=== PATIENT | male | born 1955 | race Caucasian/White ===

== ENCOUNTER 2016-10-29 14:26 | Emergency (ER) | payer OTHER ==
[2016-10-29 14:32] VITALS: BP 137/83
--- NOTE | 2016-10-29 14:59 | UC ---
Elbow Pain - HPI Summary HPI Summary: complaint of left elbow pain that started 2 days ago gradually the pain has increased and more inflamed pain is worse with movement denies trauma denies fever took some advil with relief - History of Current Complaint Hx Obtained From: Patient <Cassia Ricketts - Last Filed: 10/29/16 15:40> <Jenny Smith - Last Filed: 10/29/16 18:37> - History of Current Complaint Chief Complaint: UCUpperExtremity Stated Complaint: SOFT TISSUE COMPLAINT Time Seen by Provider: 10/29/16 14:53 - Allergies/Home Medications Allergies/Adverse Reactions: Allergies Allergy/AdvReac Type Severity Reaction Status Date / Time No Known Allergies Allergy Verified 12/12/15 12:01 PMH/Surg Hx/FS Hx/Imm Hx Previously Healthy: Yes Endocrine History: Dyslipidemia Cardiovascular History: Hypertension - Surgical History Surgical History: Yes Surgery Procedure, Year, and Place: Rt KNEE -Xs 2 - MMT , LATERAL MMT - Family History Known Family History: Positive: Hypertension Negative: Cardiac Disease, Diabetes - Social History Lives: With Family Alcohol Use: Occasionally Substance Use Type: None Smoking Status (MU): Never Smoked Tobacco <Cassia Ricketts - Last Filed: 10/29/16 15:40> Review of Systems Constitutional: Negative Skin: Negative Eyes: Negative ENT: Negative Respiratory: Negative Cardiovascular: Negative Gastrointestinal: Negative Genitourinary: Negative Motor: Negative Neurovascular: Negative Musculoskeletal: Other: - left elbow pain Neurological: Negative Psychological: Negative All Other Systems Reviewed And Are Negative: Yes <Cassia Ricketts - Last Filed: 10/29/16 15:40> Physical Exam Triage Information Reviewed: Yes Appearance: No Pain Distress, Well-Nourished Vital Signs: Initial Vital Signs Temp 98.4 F 10/29/16 14:30 Pulse 95 10/29/16 14:30 Resp 18 10/29/16 14:30 BP 137/83 10/29/16 14:30 Pulse Ox 100 10/29/16 14:30 Vital Signs Reviewed: Yes Eyes: Positive: Conjunctiva Clear ENT: Positive: Pharynx normal, TMs normal Neck: Positive: No Lymphadenopathy Respiratory: Positive: Lungs clear, Normal breath sounds, No respiratory distress, No accessory muscle use Cardiovascular: Positive: RRR, No Murmur, Pulses Normal Abdomen Description: Positive: Nontender, Soft Bowel Sounds: Positive: Present Musculoskeletal: Positive: Other: - tenderness and edema throughout upper arm, elbow and lower arm, in olecranon, medial, lateral epicondyle elbow. Full ROM upon flexion and extension Neurological: Positive: Alert Psychological Exam: Normal Skin: Positive: Other - erythema warm to touch from mid foream to mid upper arm puncture wounds on elbow appears to be insect bite <Cassia Ricketts - Last Filed: 10/29/16 15:40> Vital Signs: Initial Vital Signs Temp 98.4 F 10/29/16 14:30 Pulse 95 10/29/16 14:30 Resp 18 10/29/16 14:30 BP 137/83 10/29/16 14:30 Pulse Ox 100 10/29/16 14:30 <Jenny Smith - Last Filed: 10/29/16 18:37> Elbow Pain Course/Dx - Differential Dx/Diagnosis Differential Diagnosis/HQI/PQRI: Bursitis, Cellulitis, Infection, Joint Effusion Provider Diagnoses: cellulitis <Cassia Ricketts - Last Filed: 10/29/16 15:40> Discharge <Cassia Ricketts - Last Filed: 10/29/16 15:40> <Jenny Smith - Last Filed: 10/29/16 18:37> - Discharge Plan Condition: Stable Disposition: HOME Prescriptions: Sulfamethox/Trimethoprim DS* [Bactrim DS 800/160 TAB*] 1 tab PO BID #14 tab Patient Education Materials: Cellulitis (ED) Referrals: Shane Low MD [Primary Care Provider] - Additional Instructions: Please start antibiotic as directed Increase fluids and rest Take acetaminophen or ibuprofen for fever or pain Please review your discharge instructions. If your symptoms do not improve please call your primary care provider or return to urgent care. CELLULITIS What is Cellulitis? Cellulitis is a bacterial infection of the skin and, sometimes, of the tissues beneath the skin. The skin normally has many types of bacteria on it, but intact skin is an effective barrier that keeps bacteria from entering and growing within the body. When there is a break in the skin, bacteria can enter the body and grow there, causing infection. The infection usually affects outer layers of the skin first, and then spreads deeper into body tissues. Cellulitis can affect any area of the body covered by skin, but it is most common on the face or lower part of the legs. Symptoms Might Include: Skin redness that increases in size as the infection spreads Tight, glossy, "stretched" appearance of the skin Pain or tenderness of the area The affected area may be warm or hot to the touch A thin red line (along a vein) from the cellulitis toward the heart Fever Chills, shaking Muscle aches pains Joint stiffness because of swelling around a joint Treatment Recommendations: The healthcare provider may have prescribed an antibiotic medicine. The medicine should be taken until it is completely gone, even if you are feeling better. If you stop taking the medicine early, the infection may not be completely gone, and the medication may not work the next time. If the infection is on your arm or leg, keep it elevated. You may use warm, wet compresses to relieve the pain and help healing. Soak a clean cloth in warm water, wring it out a little, and apply it to the affected site. Leave the soak in place for 15 minutes and repeat often throughout the day. Rest until the fever is gone and the pain and redness have lessened. You may take ibuprofen (Motrin, Advil), or acetaminophen (Tylenol) for pain. These will help ease some of the symptoms but will not cure the infection. Call Your Doctor or Return Here IF: Your fever does not go down with treatment, or it increases to more than 101 F. You are not starting to get better with the treatment within 24 to 36 hours. You have increasing pain, swelling, or chills. You feel drowsy and lethargic, or you have vomiting or diarrhea. You find the redness is spreading or there are red streaks coming from the infected area. The joint or bone under the infected skin becomes painful after the skin has started to heal. You have any new symptoms that worry you. Attestation Statement User Type: Provider - I was available for consult. This patient was seen by the LAURA. The patient was not presented to, seen by, or examined by me. -Ryan <Jenny Smith - Last Filed: 10/29/16 18:37>
--- NOTE | 2016-10-29 15:20 | RAD ---
Indication: Left elbow pain. 2 views of left elbow demonstrates no fracture. No other bone or joint abnormality is noted. No joint effusion is noted. IMPRESSION: Unremarkable left elbow.
[2016-10-29] MEDS ORDERED: Tetan/Diph/Pertus SYR(Tdap)* 0.5 ML SYR(BOOSTRIX) use SYR IM ONE (15:43)
== END 2016-10-29 15:45 | disposition home or self-care (01) ==
LOC: UCEAST 14:26
DX: L03.114 Cellulitis of left upper limb (principal)
CPT/HCPCS: 99212; G0463

== ENCOUNTER 2016-11-01 15:17 | Day surgery (SDC) | payer OTHER ==
[2016-11-02] MEDS ORDERED: KETAMINE HCL* 50 MG/ML 10 ML VIAL ONE (07:39)
[2016-11-02] MEDS ORDERED: Midazolam* 1 MG/ML 5 ML VIAL (5 MG) ONE (07:39)
[2016-11-02] MEDS ORDERED: fentaNYL* 50 MCG/ML 2 ML VIAL (100 MCG VIAL) ONE ×2 (07:39→08:34)
[2016-11-02] MEDS ORDERED: Bupivacaine 0.25% SDV* 30 ML ONE (07:51)
[2016-11-02] MEDS ORDERED: Vancomycin(*) 2,000 MG in NS 0.9% 500 ML BAG* 500 ML IVPB ONE (08:00)
[2016-11-02] MEDS ORDERED: Ondansetron INJ* 2 MG/ML VIAL ONE (08:34)
[2016-11-02] MEDS ORDERED: PROCHLORPERAZINE INJ 5 MG/ML 2 ML VIAL ONE (08:34)
[2016-11-02] MEDS ORDERED: Propofol* 10 MG/ML 20 ML BTL IV PUSH ONE (08:34)
[2016-11-02] MEDS ORDERED: Lidocaine 2% PF * 5 ML VIAL ONE ×2 (08:34→09:28)
[2016-11-02] MEDS ORDERED: Dexamethasone IV* 4 MG/ML 1 ML (4 MG) ONE (08:34)
[2016-11-02] MEDS ORDERED: Phenylephrine IV* 40 MCG/ML 10 ML SYRINGE ONE (08:35)
[2016-11-02] MEDS ORDERED: Morphine INJ* 2 MG/ML 1 ML SYRINGE IV PRN (09:40)
[2016-11-02] MEDS ORDERED: PROCHLORPERAZINE INJ 5 MG/ML 2 ML VIAL IV PRN (09:40)
[2016-11-02] MEDS ORDERED: Ketorolac INJ* 30 MG/ML 1 ML VIAL IV PRN (09:40)
[2016-11-02] MEDS ORDERED: oxyCODONE/Acetamin 5/325 MG* TAB PO PRN (09:40)
[2016-11-02] MEDS ORDERED: Scopolamine 1.5 mg* PATCH TRANSDERM PRN (09:40)
[2016-11-02] MEDS ORDERED: fentaNYL* 50 MCG/ML 2 ML VIAL (100 MCG VIAL) IV PRN (09:40)
[2016-11-02] MEDS ORDERED: hydrALAZINE IV* 20 MG/ML VIAL ONE (09:52)
[2016-11-02] MEDS ORDERED: hydrALAZINE IV* 20 MG/ML VIAL IV SLOW PU ONE (09:53)
[2016-11-02 10:46] VITALS: BP 138/82
--- NOTE | 2016-11-02 16:36 | OP ---
DATE OF OPERATION: 11/02/16 [facility] DATE OF : 53 SURGEON: Bruce Walters MD JEWISH [employer]OUGHT PROFESSOR: KOBI Johnson ANESTHESIOLOGIST: Latrell Casey MD ANESTHESIA: General. PRE-OP DIAGNOSIS: Septic left olecranon bursitis. POST-OP DIAGNOSIS: Septic left olecranon bursitis. OPERATIVE PROCEDURE: Left elbow olecranon bursectomy. INDICATIONS: Bart was out of town last week when the left elbow began to bother him. He was started on some Bactrim and he saw his primary care, Dr. Low, who started him on doxycycline and sent him over to my office. I aspirated the bursa. Later that night, it came back as MRSA positive. I called Pablo. The soonest he could have an intervention was Thursday. 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 We talked about risks and benefits including the risk of persistent infection after surgery, risk of wound problems , risk of need for further surgery. He elected to proceed. ESTIMATED BLOOD LOSS: 5 mL. COMPLICATIONS: None. FINDINGS: As expected. DESCRIPTION OF PROCEDURE: Bart was seen in the preoperative holding area. The correct site and side of the procedure were identified. We came back to the operating room, where he was placed in the lateral decubitus position with the left arm facing me over an arm roca. The arm was prepped and draped in the usual fashion and a formal time-out was performed. I began by making posterior incision directly over the midline of the posterior elbow. This was made the full length of the bursa. I then the bursal tissue from the underlying dermis. The dermis was preserved as I excised the bursa in its entirety sharply. The margins were completely free. Taking care to excise the bursa in its entirety, we had also not buttonhole through the skin. Care was taken immediately to not violate the deep fascia and to therefore not injure the ulnar nerve. The bursa was excised in its entirety, deeply off the proximal tissue of the distal triceps tendon proximally and of the olecranon and fascia distally. This was handed off as a specimen. I had obtained a set of cultures prior to this. I then curetted out all of the remaining margins. The wound was copiously irrigated with 3 L of saline. The skin was then loosely closed with 3-0 nylon suture. The wound was dressed with Xeroform, 4x4s, ABD, sterile Webril, and then a posterior slab splint with the arm in 70 degrees of flexion was applied with some decent compression to help minimize postoperative fluid collection. He did get 2 g of vancomycin started preop. Tourniquet was deflated after the splint was on. The tourniquet had been inflated to 250 mmHg prior to making skin incision. He was then woken up and taken to recovery room in stable condition. POSTOPERATIVE PLAN: I am going to see Pablo back next week and have a look at the wound. He is going to continue the Bactrim and the doxycycline for now. I sent a script over for more Bactrim as he is getting close to running out. I will check on him again early next week. [id number]/[facility] #: [id number] LEONID
[2016-11-05] MEDS ORDERED: Scopolomine PATCH Remove* 1 NOTE MISC PATCH OFF ONE (09:42)
== END 2016-11-02 10:45 | disposition home or self-care (01) ==
LOC: SDS 15:17
PROVIDERS: ATTEND Orthopaedic Surgery Hand Surgery
DX: M71.122 Other infective bursitis, left elbow (principal); B95.62 Methicillin resistant Staphylococcus aureus infection as the cause of diseases classified elsewhere
CPT/HCPCS: 87070; 87073; 87205; 87640; 87641; 88304; J0360; J0780; J1100; J2250; J2405; J2704; J3010; J3370

== ENCOUNTER 2019-03-31 05:37 | Inpatient (IN) | payer OTHER ==
--- NOTE | 2019-03-22 12:56 | HP ---
HISTORY AND PHYSICAL: DATE OF ADMISSION/SURGERY: 03/31/19 DATE OF OFFICE VISIT: 03/09/19 SURGEON: Zita Aguilar MD * (DICTATED BY KOBI JONES) PROCEDURE: Bilateral total knee arthroplasty. CHIEF COMPLAINT: Bilateral knee pain. HISTORY OF PRESENT ILLNESS: Mr. Iniguez is a 63-year-old gentleman with end- stage osteoarthritis of the bilateral knees. He has failed conservative treatment and elected to proceed with bilateral total knee arthroplasties. PAST MEDICAL HISTORY: Hypertension, high cholesterol, BPH, GERD, and history of MRSA. PAST SURGICAL HISTORY: Right knee arthroscopy x2, left elbow bursectomy. CURRENT MEDICATIONS: 1. Cialis 5 mg as needed. 2. Centrum Silver. 3. Losartan potassium 100 mg daily. 4. Amlodipine 10 mg a day. 5. Crestor 5 mg a day. 6. Citalopram 10 mg daily. 7. Famotidine 20 mg a day. ALLERGIES: No known drug allergies. FAMILY HISTORY: Hypertension. SOCIAL HISTORY: He is a 63-year-old gentleman, lives with his . He does not smoke or use drugs. REVIEW OF SYSTEMS: A complete 14-point review of systems was reviewed with the patient. It was positive for GERD and history of MRSA infection 2 years ago of his left elbow. He denies history of DVT, hepatitis, HIV, or anesthesia problems. PHYSICAL EXAMINATION GENERAL: He is well developed, well nourished, in no acute distress. VITAL SIGNS: He stands 5 feet 10 inches tall, weighs 193 pounds. His blood pressure is 142/72, his heart rate is 72. HEENT: Normocephalic, atraumatic. NECK: Supple. No palpable lymph nodes. PULMONARY: The lungs are clear to auscultation bilaterally. CARDIO: Regular rate and rhythm. Strong S1, S2. ABDOMEN: Soft, nontender, nondistended. NEUROLOGICAL: He is alert and oriented x3. MUSCULOSKELETAL: Bilateral lower extremities: The skin is intact. There are no open wounds or abrasions. There are moderate bilateral joint effusions. Range of motion is 20 to 120 degrees of flexion bilaterally. He is tender along the medial joint line of both knees. He is able to dorsiflex and plantarflex, has 2+ dorsalis pedis pulses and intact sensation. ASSESSMENT AND PLAN: Mr. Iniguez is a 63-year-old gentleman with end-stage osteoarthritis of both knees. He has failed conservative treatment and elected to proceed with bilateral total knee arthroplasties. The surgery is scheduled for 03/31/[address] Aguilar discussed the risks and benefits of the surgery at today's visit and all of his questions were answered. He will follow up with Dr. Aguilar 2 weeks after the surgery. KOBI JONES [id number]/[facility] #: [id number] MTDD
[~2019-03-31 05:37] MED LIST: Buffered Lidocaine 1% SYRIN* 1 ML/SYRINGE INTRADERM ONE; Tranexamic Acid 1,000 MG in NS 0.9% 50 ML* (outpatient use) IV SCH
[2019-03-31] MEDS ORDERED: fentaNYL* 50 MCG/ML 2 ML VIAL (100 MCG VIAL) IV PRN (05:39)
[2019-03-31] MEDS ORDERED: PROCHLORPERAZINE INJ 5 MG/ML 2 ML VIAL IV PRN (05:39)
[2019-03-31] MEDS ORDERED: Naloxone* 0.4 MG/ML 1 ML VIAL IV PRN (05:39)
[2019-03-31] MEDS ORDERED: DiMENhydriNATE IV* 50 MG/ML VIAL IV PUSH PRN (05:39)
[2019-03-31] MEDS ORDERED: HYDROmorphone INJ1* 1 MG/ML SYRINGE IV PRN (05:39)
--- OUTSIDE RECORDS SUMMARY | 2019-03-31 05:40 | XMS REPORT | Continuity of Care Document ---
:1955 External Reference #:[id number] Author Name Zita Aguilar M.D. (transmitted by agent of provider Kyra Parkinson) Address [address] 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 Onset: 12/12/2015 Acquired spondylolisthesis Magan Pina M.D. Onset: 12/12/2015 Localized, primary osteoarthritis Colby Ayala MD Onset: 01/22/2016 Knee joint effusion Colby Ayala MD Onset: 01/22/2016 Olecranon bursitis Bruce Walters MD Onset: 10/31/2016 Strain of muscle(s) and tendon(s) of the Colby Ayala MD Onset: 2018 rotator cuff of right shoulder, subsequent encounter Strain of rotator cuff capsule Colby Ayala MD Onset: 07/08/2018 Social History Type Date Description Comments Sex Unknown ETOH Use Drinks Alcoholic Beverages Occasionally Tobacco Use Start: Unknown Patient has never smoked Recreational Drug Use Denies Drug Use Smoking Status Reviewed: 03/09/19 Patient has never smoked Exercise Type/Frequency Does not exercise Allergies, Adverse Reactions, Alerts Description No Known Drug Allergies Medications Active Medications SIG Qnty Indications Ordering Date Provider Meloxicam 1 by mouth every 14tabs M25.562 Zita Aguilar, 10/18/2018 15mg day M.D. Tablets Cialis 1 by mouth 1 hour Unknown 5mg Tablets before intercourse as needed Centrum Silver Ultra Unknown Mens Tablets Losartan Potassium 1 by mouth every Unknown day 100mg Tablets Amlodipine Besylate Take 1 Tablet By Unknown Mouth Every Day 10mg Tablets Crestor 1 by mouth every Unknown 5mg Tablets day Ranitidine HCL take one tablet by Unknown 150mg mouth twice a day Tablets Medications Administered in Office Medication SIG Qnty Indications Ordering Provider Date Depomedrol 40MG Zita Aguilra M.D. 10/18/2018 Injection Depomedrol 40MG Zita Aguilar M.D. 10/18/2018 Injection No Injection Bruce Walters MD 10/31/2016 Injection Immunizations Description No Information Available Vital Signs Date Vital Result Comment 03/09/2019 11:08am Height 70 inches 5'10" Weight 193.00 lb Heart Rate 68 /min BP Systolic 142 mmHg BP Diastolic 72 mmHg Respiratory Rate 18 /min Pain Level 6 BMI (Body Mass Index) 27.7 kg/m2 02/02/2019 11:30am Height 70 inches 5'10" Weight 191.00 lb Heart Rate 75 /min BP Systolic 140 mmHg BP Diastolic 82 mmHg Body Temperature 97.6 F Pain Level 2 BMI (Body Mass Index) 27.4 kg/m2 Results Description No Information Available Procedures Date Code Description Status 10/18/2018 63841 Inject/Drain Joint/Bursa Major W/O US Completed Medical Devices Description No Information Available Encounters Type Date Location Provider Dx Diagnosis [facility] Eff[facility], right knee M25.562 Pain in left knee M25.462 Effusion, left knee M17.0 Bilateral primary osteoarthritis of knee Office Visit 11/01/2018 11:00a [facility], M25.561 Pain in right at [facility]. knee M25.562 Pain in left knee M25.461 Effusion, right knee M25.462 Effusion, left knee M17.0 Bilateral primary osteoarthritis of knee S83.242A Oth tear of medial meniscus, current injury, left knee, init S83.282A Oth tear of lat mensc, current injury, left knee, init Office Visit 10/18/2018 9:30a [facility] Zitakatie Syedke, M25.561 Pain in right at [place] M.D. knee M25.562 Pain in left knee M25.461 Effusion, right knee M25.462 Effusion, left knee M17.0 Bilateral primary osteoarthritis of knee Assessments Date Code Description Provider 03/09/2019 M25.561 Pain in right knee Zita Jeff, M.D. 03/09/2019 M25.461 Effusion, right knee Zita Jeff, M.D. 03/09/2019 M25.562 Pain in left knee Zita Jeff, M.D. 03/09/2019 M25.462 Effusion, left knee Zita Jeff, M.D. 03/09/2019 M17.0 Bilateral primary osteoarthritis of knee Zita Jeff, M.D. 02/02/2019 M25.561 Pain in right knee Zita Jeff, M.D. 02/02/2019 M25.461 Effusion, right knee Zita Jeff, M.D. 02/02/2019 M25.562 Pain in left knee Zita Jeff, M.D. 02/02/2019 M25.462 Effusion, left knee Zita Jeff, M.D. 02/02/2019 M17.0 Bilateral primary osteoarthritis of knee Zita Jeff, M.D. 11/10/2018 M25.561 Pain in right knee Zita Jeff, M.D. 11/10/2018 M25.461 Effusion, right knee Zita Jeff, M.D. 11/10/2018 M17.0 Bilateral primary osteoarthritis of knee Zita Jeff, M.D. 11/09/2018 M25.561 Pain in right knee Zita Jeff, M.D. 11/09/2018 M25.461 Effusion, right knee Zita Jeff, M.D. 11/09/2018 M17.0 Bilateral primary osteoarthritis of knee Zita Jeff, M.D. 11/01/2018 M25.561 Pain in right knee Zita Jeff, M.D. 11/01/2018 M25.562 Pain in left knee Zita Jeff, M.D. 11/01/2018 M25.461 Effusion, right knee Zita Aguilar M.D. 11/01/2018 M25.462 Effusion, left knee Zita Aguilar M.D. 11/01/2018 M17.0 Bilateral primary osteoarthritis of knee Zita Aguilar M.D. 11/01/2018 S83.242A Oth tear of medial meniscus, current injury, Zita Aguilar M.D. left knee, init 11/01/2018 S83.282A Oth tear of lat mensc, current injury, left Zita Aguilar M.D. knee, init 10/18/2018 M25.561 Pain in right knee Zita Aguilar M.D. 10/18/2018 M25.562 Pain in left knee Zita Aguilar M.D. 10/18/2018 M25.461 Effusion, right knee Zita Aguilar M.D. 10/18/2018 M25.462 Effusion, left knee Zita Aguilar M.D. 10/18/2018 M17.0 Bilateral primary osteoarthritis of knee Zita Aguilar M.D. Plan of Treatment Future Appointment(s):04/15/2019 1:00 pm - Zita Aguilar M.D. at [facility] at Tovxgm9703/31/2019 8:30 am - Tony Medina PA-C at [facility] at Aczmhn0003/31/2019 8:30 am - KOBI Don at [facility] at Xkzecs5903/31/2019 8:30 am - Zita Aguilar M.D. at [facility] at Zgjoeb2403/09/2019 - Zita Aguilar M.D.M25.561 Pain in right kneeFollow up:Follow up: 2 weeks after qijhtwmQ59.461 Effusion, right kneeM25.562 Pain in left kneeM25.462 Effusion, left kneeM17.0 Bilateral primary osteoarthritis of knee Functional Status Description No Information Available Mental Status Description No Information Available Referrals Description No Information Available
--- OUTSIDE RECORDS SUMMARY | 2019-03-31 05:40 | XMS REPORT | Continuity of Care Document ---
:1955 External Reference #:[id number] Author Name Zita Aguilar M.D. 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 10/18/2018 Injection Depomedrol 40MG Zita Aguilar M.D. 10/18/2018 Injection No Injection Bruce Walters MD 10/31/2016 Injection Immunizations Description No Information Available Vital Signs Date Vital Result Comment 02/02/2019 11:30am Height 70 inches 5'10" Weight 191.00 lb Heart Rate 75 /min BP Systolic 140 mmHg BP Diastolic 82 mmHg Body Temperature 97.6 F Pain Level 2 BMI (Body Mass Index) 27.4 kg/m2 11/01/2018 11:06am Height 70 inches 5'10" Weight 190.00 lb Heart Rate 72 /min BP Systolic 152 mmHg BP Diastolic 80 mmHg BMI (Body Mass Index) 27.3 kg/m2 Results Description No Information Available Procedures Date Code Description Status 02/02/2019 Inject/Drain Joint/Bursa Major W/O US Completed 02/02/2019 Inject/Drain Joint/Bursa Major W/O US Completed 10/18/2018 Inject/Drain Joint/Bursa Major W/O US Completed Medical Devices Description No Information Available Encounters Type Date Location Provider Dx Diagnosis Office Visit 11/01/2018 [facility] Zita Aguilar, M25.561 Pain in right 11:00a at [place] M.D. knee M25.562 Pain in left knee M25.461 Effusion, right knee M25.462 Effusion, left knee M17.0 Bilateral primary osteoarthritis of knee S83.242A Oth tear of medial meniscus, current injury, left knee, init S83.282A Oth tear of lat mensc, current injury, left knee, init Office Visit 10/18/2018 9:30a [facility] Zita Aguilar, M25.561 Pain in right at [place] M.D. knee M25.562 Pain in left knee M25.461 Effusion, right knee M25.462 Effusion, left knee M17.0 Bilateral primary osteoarthritis of knee Assessments Date Code Description Provider 02/02/2019 M25.561 Pain in right knee Zita [...] M.D. 11/01/2018 M25.461 Effusion, right knee Zita Jeff, M.D. 11/01/2018 M25.462 Effusion, left knee Zita Jeff, M.D. 11/01/2018 M17.0 Bilateral primary osteoarthritis of knee Zita Jeff, M.D. 11/01/2018 S83.242A Oth tear of medial meniscus, current injury, Zita Aguilar M.DElijah left knee, init 11/01/2018 S83.282A Oth tear of lat mensc, current injury, left Zita Aguilar , MElijahD. knee, init 10/18/2018 M25.561 Pain in right knee Zita Jeff, M.D. 10/18/2018 M25.562 Pain in left knee Zita Aguilar M.D. 10/18/2018 M25.461 Effusion, right knee Zita Aguilar M.D. 10/18/2018 M25.462 Effusion, left knee Zita Aguilar M.D. 10/18/2018 M17.0 Bilateral primary osteoarthritis of knee Zita Aguilar M.D. Plan of Treatment Future Appointment(s):03/23/2019 11:30 am - Zita Aguilar M.D. at [facility] at Ejyubf0903/31/2019 7:30 am - Zita Aguilar M.D. at [facility] at Drxnba3102/02/2019 - Zita Aguilar M.D.M25.561 Pain in right kneeNew Xrays:CT Extremity Lower Right Wo, Ordered: 02/02/19Follow up:Follow up : for H&PM25.461 Effusion, right kneeM25.562 Pain in left kneeM25.462 Effusion, left kneeM17.0 Bilateral primary osteoarthritis of knee Functional Status Description No Information Available Mental Status Description No Information Available Referrals Description No Information Available
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
--- OUTSIDE RECORDS SUMMARY | 2019-03-31 05:40 | XMS REPORT | Continuity of Care Document ---
:1955 External Reference #:[id number] Author Name Toya Brown NP Address [address] [place] [address] Care Team Providers Name Role Phone Shane Low MD - Family Medicine Care Team Information Field Crop I Farmworker [phone] Virgilio Vasquez MD - Cardiovascular Care Team Information Field Crop I Farmworker Disease Problems Active Problems Provider Date Benign [...] Patient has never smoked Smoking Status Reviewed: 02/15/19 Patient has never smoked Allergies, Adverse Reactions, Alerts Description No Known Drug Allergies Medications Active Medications SIG Qnty Indications Ordering Date Provider Sergo sanchez 85gm T24.231A Toya Ruiz 02/15/2019 1% Cream amount to Brown, ACCOUNTS RECEIVABLE CLERK affected are twice a day Bactrim DS 1 tablet by 20tabs L03.115 Toya Sara 02/15/2019 800-160mg mouth twice a Brown, ACCOUNTS RECEIVABLE CLERK Tablets day Amlodipine Besylate 1 by mouth [...] by mouth once 4caps Shane F. 08/04/2012 14136Cavr monthly Shallish, M.D. Capsules Ibuprofen take 1 tablet by 120tabs Shane F. 08/17/2009 400mg Tablets mouth every 4 Shallish, M.D. hours if needed for pain with food Centrum Mens 50 + 1 po qd Unknown Tablets Cialis daily Unknown 5mg Tablets Immunizations CPT Code Status Date Vaccine Lot # [id number] Given 01/19/2018 Influenza Vac, [place], [place] [id number] Given 01/19/2018 Influenza Vac, Quadrivalent, Slit Virus, Im [id number] 66195 Given 01/06/2017 Influenza Vac, Quadrivalent, Slit Virus, Im [id number] 70212 Given 09/05/2015 Zostivax 17339 Given 08/17/2009 Tdap Tetanus, W Pertussis [id number] Vital Signs Date Vital Result Comment 02/15/2019 4:06pm BP Systolic 128 mmHg BP Diastolic 68 mmHg Heart Rate 78 /min Body Temperature 98.6 F Respiratory Rate 16 /min Height 68.5 inches 5'8.50" Weight 194.00 lb BMI (Body Mass Index) 29.1 kg/m2 11/16/2018 4:36pm BP Systolic 116 mmHg BP Diastolic 68 mmHg Heart Rate 84 /min Body Temperature 98.6 F Respiratory Rate 16 /min Height 68.5 inches 5'8.50" Weight 190.25 lb BMI (Body Mass Index) 28.5 kg/m2 Results Test Date Facility Test Result H/L Range Note Laboratory test 10/12/2018 [facility]) PSA 6.6 ng/mL High 0.0- 4.0 1 finding 1 consistent w/ previous results Procedures Date Code Description Status 02/27/2015 [id number] Colonoscopy Completed Medical Devices Description No Information Available Encounters Type Date Location Provider Dx Diagnosis Office Visit 11/16/2018 Main Office Shane Low, Brice Essential ( primary) 3:40p M.D. hypertension N40.0 Benign prostatic hyperplasia without lower urinry tract symp M15.0 Primary generalized (osteo)arthritis L03.011 Cellulitis of right finger Assessments Date Code Description Provider 02/15/2019 L03.115 Cellulitis of right lower limb [...] Shane Low M.D. Plan of Treatment Future Appointment(s):02/22/2019 11:00 am - Toya Brown NP at Main Ppfqef6903/03/2019 8:20 am - Shane Low M.D. at Main Gtrngu0302/15/2019 - Toya Brown, NPL03.115 Cellulitis of right lower limbNew Medication: Bactrim DS 800-160 mg - 1 tablet by mouth twice a dayComments:water gently over site no scrubbing patient instructed to call back if condition fails to improve orworsens. silvadine BID Bactrim as he has a hx of MRSAFollow up:1 weekT24.231A Burn of second degree of right lower leg, initial encounterNew Medication:Silvadene 1 % - apply small amount to affected are twice a dayAllComments:Medication Management Patient Understands medications he 's taking? Yes No Are there Barriers to Adherence? Yes No Has the patient been asked about herbal supplements and therapies, andOTC meds? Yes No Care Plan1. Patient has been queried about patient's goals/ preferences and functional/lifestyle goals at relevant visits. If relevant, describe: na2. Treatment goals as explained to the patient: above3. Are there barriers to meeting treatment goals? Yes No If Yes, please describe: disease process, comorbid conditions 4. Self-Management goals as described to the [...] pain jw Scheduled 10/18/2018 [facility] [address] [address] [phone]
[2019-03-31] MEDS ORDERED: Ondansetron ODT TAB* 4 MG PO ONE (06:00)
[2019-03-31] MEDS ORDERED: Gabapentin CAP(*) 300 MG PO ONE (06:00)
[2019-03-31] MEDS ORDERED: Acetaminophen TAB* 325 MG PO ONE (06:00)
[2019-03-31] MEDS ORDERED: celeCOXIB CAP* 200 MG PO ONE (06:00)
[2019-03-31] MEDS ORDERED: Famotidine IV* 10 MG/ML 2 ML (20 mg) IV ONE (06:00)
[2019-03-31] MEDS ORDERED: Lactated Ringers 1000 ML Bag* 1,000 ML IV SCH (06:00)
[2019-03-31] MEDS ORDERED: Dexamethasone TAB* 4 MG PO ONE (06:00)
[2019-03-31] MEDS ORDERED: ceFAZolin 2 GM in NS PREMIX(*) 2 GM/100 ML BAG IVPB ONE (06:18)
[2019-03-31] MEDS ORDERED: Acetaminophen TAB* 325 MG ONE (06:50)
[2019-03-31] MEDS ORDERED: Dexamethasone TAB* 4 MG ONE (06:50)
[2019-03-31] MEDS ORDERED: Gabapentin CAP(*) 300 MG ONE (06:50)
[2019-03-31] MEDS ORDERED: Famotidine IV* 10 MG/ML 2 ML (20 mg) ONE (06:51)
[2019-03-31] MEDS ORDERED: celeCOXIB CAP* 200 MG ONE (06:51)
[2019-03-31] MEDS ORDERED: Ondansetron ODT TAB* 4 MG ONE (07:03)
[2019-03-31] MEDS ORDERED: fentaNYL* 50 MCG/ML 5 ML VIAL (250 MCG VIAL) ONE (07:29)
[2019-03-31] MEDS ORDERED: KETAMINE HCL* 50 MG/ML 10 ML VIAL ONE (07:30)
[2019-03-31] MEDS ORDERED: Midazolam* 1 MG/ML 10 ML VIAL (10 MG) ONE (07:30)
[2019-03-31 07:37] LABS: INR 1.01 (0.82-1.09)
[2019-03-31] MEDS ORDERED: Bupivacaine 0.5%* 50 ML MDV VIAL ONE (08:08)
[2019-03-31] MEDS ORDERED: ROPIVACAINE 5 MG/ML 30 ML BTL (0.5%) ONE (09:06)
[2019-03-31] MEDS ORDERED: Phenylephrine 10 MG/ML VIAL* 1 ML VIAL ONE (10:18)
[2019-03-31] MEDS ORDERED: Phenylephrine 40 MCG/ML SYRINGE ONE (10:18)
[2019-03-31] MEDS ORDERED: EPHEDrine (Pressors)* 50 MG/ML VIAL ONE (10:19)
[2019-03-31] MEDS ORDERED: Lidocaine 2% PF * 5 ML VIAL ONE (10:19)
[2019-03-31] MEDS ORDERED: HYDROmorphone INJ1* 1 MG/ML SYRINGE ONE ×2 (10:19→11:31)
[2019-03-31] MEDS ORDERED: Bupivacaine 0.5% SDV PF* 30ML VIAL ONE (10:19)
[2019-03-31] MEDS ORDERED: PROCHLORPERAZINE INJ 5 MG/ML 2 ML VIAL ONE (10:19)
[2019-03-31] MEDS ORDERED: Propofol* 10 MG/ML 20 ML BTL ONE (10:19)
[2019-03-31] MEDS ORDERED: Morphine INJ* 2 MG/ML 1 ML SYRINGE (TWO MG - NEW SYRINGE VERSION) IV PRN (12:21)
[2019-03-31] MEDS ORDERED: Ondansetron INJ* 2 MG/ML VIAL IV PRN (12:21)
[2019-03-31] MEDS ORDERED: Ondansetron ODT TAB* 4 MG PO PRN (12:21)
[2019-03-31] MEDS ORDERED: diPHENhydraMINE PO* 25 MG PO PRN (12:21)
[2019-03-31] MEDS ORDERED: Acetaminophen TAB* 325 MG PO PRN (12:21)
[2019-03-31] MEDS ORDERED: diPHENhydraMINE IV* 50 MG/ML 1 ml VIAL (BENADRYL) IV PRN (12:21)
[2019-03-31] MEDS ORDERED: Magnesium Hydroxide LIQ* 30 ML UDC PO PRN (12:21)
[2019-03-31] MEDS ORDERED: oxyCODONE TAB* 5 MG TAB ONE (13:37)
[2019-03-31] MEDS: oxyCODONE TAB* 5 MG TAB PO PRN ×2 (13:37→13:38)
[2019-03-31] MEDS: Lactated Ringers 1000 ML Bag* 1,000 ML IV SCH (14:15)
--- NOTE | 2019-03-31 15:23 | PN ---
Progress Note - Progress Note Date of Service: 03/31/19 Note: Pt seen at bedside POD 0. He feels well without complaints. Denies CP, SOB, dizziness, nausea. Dressings are CDI, able to df/pf bilaterally, DP2+ and sensation intact to light touch distally bilaterally.
[2019-03-31] MEDS: ceFAZolin 1 GM ADVAN(*) 1 GM in NS 0.9% 50 ML* 50 ML IVPB SCH (16:22)
[2019-03-31] MEDS: oxyCODONE/Acetamin 5/325 MG* TAB PO PRN ×2 (16:29→20:48)
--- NOTE | 2019-03-31 19:27 | OP ---
Operative Report - Blank - Operative Report Date of Operation: 03/31/19 Note: BJ ALEXANDRE 1955 Date of Surgery: 03/31/19 Zita Aguilar MD Wash Driller Helper: Hiral PEACE did help throughout the procedure with preparation of the knee, wound retraction, manipulation of the knee, and wound closure. Anesthesiologist: Layne Casey MD Anesthesia Type: General and Adductor Blocks Bilaterally Preoperative Diagnosis: Bilateral severe degenerative osteoarthritis of the knees Postoperative Diagnosis: As above Procedure Performed: Bilateral Total Knee Arthroplasty Tourniquet time: 44 minutes left knee, 48 minutes right knee Complications: None Specimen: Bone and cartilage from the bilateral knees joint sent to pathology. Hardware Used: Cemented Hicks and Nephew total knee hardware was used - Left - For the femur a size 6 left oxinium legion posterior stabilized femoral component, for the tibia a size 5 left sasha II tibial baseplate, for the insert a size 9mm 5-6 posterior stabilized articular polyethylene insert, and for the patella a size 35 3-peg all poly patella. Right - For the femur a size 6 right oxinium legion posterior stabilized femoral component, for the tibia a size 5 right sasha II tibial baseplate, for the insert a size 9mm 5-6 posterior stabilized articular polyethylene insert , and for the patella a size 35 3-peg all poly patella. Brief History/Indication: BJ ALEXANDRE was known in clinic and had a history of severe bilateral knee pain and swelling. He failed conservative treatment with anti-inflammatories, pain pills, intra-articular injections and physical therapy. He elected to undergo bilateral total knee arthroplasty due to continued pain and decreased quality of life. Radiographs showed severe end stage osteoarthritis of the knee with bone on bone contact. Informed consent was obtained from the patient. He understood the risks of surgery included but were not limited to: bleeding, infection, damage to nearby structures, intraoperative fracture, nerve palsy, failure of the hardware, early loosening, knee stiffness or loss of motion, anesthesia complications, stroke, heart attack , blood clot and . He wished to proceed. Intra-Operative Findings: Intraoperatively the patient was noted to have severe loss of cartilage in all 3 compartments of the knee, both right and left. His right knee had significant subchondral cysts in the medial femoral condyle and the medial tibial plateau. These were less than 2cm diameter and filled with cement. . Description of the Procedure: BJ ALEXANDRE was identified in the preanesthesia unit. His bilateral knees were marked as the correct operative side. Informed consent was signed and placed in the chart. The patient was taken to the operating room and placed under anesthesia without complication. A james catheter was placed. A tourniquet was placed on the bilateral thigh. The bilateral lower extremities was prepped and draped in the usual sterile fashion. Preoperative time-out was made to correctly identify the patient, side and site. Appropriate intraoperative antibiotics were given within one hour of incision. Left knee replacement was performed first. Tourniquet was inflated. A midline incision was made and carried sharply down to the extensor mechanism. A new 10 blade was used to make a standard medial parapatellar arthrotomy. The patella was subluxed laterally. Electrocautery was used to dissect soft tissue off the superomedial tibia to the midsagittal plane. The knee was flexed up. The anterior horn of the lateral meniscus and the ACL were sharply incised. A drill was used to enter the distal femur. The intramedullary distal femoral cutting guide was pinned on the distal femur. The oscillating saw was used to make the distal femoral cut. The external rotation guide was pinned on the distal femur and the distal femur was sized to a size 6. The size 6 multi-cutting jig was pinned on the distal femur. The oscillating saw was used to make the appropriate 4 chamfer cuts. Next the PCL was completely released. The extramedullary tibial cutting guide was pinned on the proximal tibia and the oscillating saw was used to make the proximal tibial cut perpendicular to the mechanical axis of the tibia. The bone was carefully removed. The knee was brought out into full extension. The spacer block was placed and had excellent fit with the knee in full extension. The medial and lateral ligaments were well balanced. The flexion and extension gaps were well balanced. The knee was flexed up. Lamina load planner was placed both medially and laterally. Any remaining meniscus was removed with electrocautery. Curved osteotome was used to remove any posterior osteophytes. The tibial tray and drop dominic were placed and confirmed a satisfactory tibial cut. The size 6 left femoral trial was impacted onto the distal femur. This trial had excellent fit and stability. The box for the posterior stabilized implant was prepared using a box cut osteotome and a reamer. Next a tibial tray trial and 9 mm insert trial was placed. The knee was taken through a range of motion and had full extension to 130 degrees of flexion. Patellofemoral tracking was satisfactory. The patella was inverted and sized to a size 35. Three peg holes were drilled through the size 35 drill guide. The trial patella was placed and the knee was taken through a range of motion. There was satisfactory patellofemoral tracking. All trials were removed. The tibia was subluxed anteriorly and sized to a size 5. The proximal tibial was prepared with a size 5 keel punch. All bony cut surfaces were irrigated with sterile saline and dried. Final implants were cemented into place starting with the tibia, followed by the femur, and last the patella. A 9 mm insert trial was placed and the knee was brought into full extension. Tourniquet was turned down and the knee was copiously irrigated with sterile saline. Electrocautery was used to obtain meticulous hemostasis. Once the cement had fully cured, the insert trial was removed. Any excess cement was removed from around the hardware and capsule. Final insert chosen was a 9 mm posterior stabilized Sasha II articular insert size 5-6. Stability of the insert was checked and noted to be stable. The extensor mechanism was closed using number 1 vicryls. The rest of the incision was closed in a layered fashion using 0 and 2-0 vicryls. The skin was closed using 3-0 nylon suture. Sterile xeroform, 4x4s and webril were used to cover the incision. Antoine wrap and cold pack were used to cover the dressings. Next the right knee was replaced. Tourniquet was inflated. A midline incision was made and carried sharply down to the extensor mechanism. A new 10 blade was used to make a standard medial parapatellar arthrotomy. The patella was subluxed laterally. Electrocautery was used to dissect soft tissue off the superomedial tibia to the midsagittal plane. The knee was flexed up. The anterior horn of the lateral meniscus and the ACL were sharply incised. A drill was used to enter the distal femur. The intramedullary distal femoral cutting guide was pinned on the distal femur. The oscillating saw was used to make the distal femoral cut. The external rotation guide was pinned on the distal femur and the distal femur was sized to a size 6. The size 6 multi-cutting jig was pinned on the distal femur. The oscillating saw was used to make the appropriate 4 chamfer cuts. The medial femoral condyle had a large subchondral cyst. This was cleared of cystic material. Next the PCL was completely released. The extramedullary tibial cutting guide was pinned on the proximal tibia and the oscillating saw was used to make the proximal tibial cut perpendicular to the mechanical axis of the tibia. The bone was carefully removed. The knee was brought out into full extension. The spacer block was placed and had excellent fit with the knee in full extension. The medial and lateral ligaments were well balanced. The flexion and extension gaps were well balanced. The knee was flexed up. Lamina load planner was placed both medially and laterally. Any remaining meniscus was removed with electrocautery. Curved osteotome was used to remove any posterior osteophytes. The tibial tray and drop dominic were placed and confirmed a satisfactory tibial cut. The size 6 right femoral trial was impacted onto the distal femur. This trial had excellent fit and stability. The box for the posterior stabilized implant was prepared using a box cut osteotome and a reamer. Next a tibial tray trial and 9 mm insert trial was placed. The knee was taken through a range of motion and had full extension to 130 degrees of flexion. Patellofemoral tracking was satisfactory. The patella was inverted and sized to a size 35. Three peg holes were drilled through the size 35 drill guide. The trial patella was placed and the knee was taken through a range of motion. There was satisfactory patellofemoral tracking. All trials were removed. The tibia was subluxed anteriorly and sized to a size 5. The proximal tibial was prepared with a size 5 keel punch. A posterior medial tibial plateau subchondral cyst was identified and cleared of all cystic material. All bony cut surfaces were irrigated with sterile saline and dried. Final implants were cemented into place starting with the tibia, followed by the femur, and last the patella. The subchondral cysts were filled with cement. A 9 mm insert trial was placed and the knee was brought into full extension. Tourniquet was turned down and the knee was copiously irrigated with sterile saline. Electrocautery was used to obtain meticulous hemostasis. Once the cement had fully cured, the insert trial was removed. Any excess cement was removed from around the hardware and capsule. Final insert chosen was a 9 mm posterior stabilized Sasha II articular insert size 5-6. Stability of the insert was checked and noted to be stable. The extensor mechanism was closed using number 1 vicryls. The rest of the incision was closed in a layered fashion using 0 and 2-0 vicryls. The skin was closed using 3-0 nylon suture. Sterile xeroform, 4x4s and webril were used to cover the incision. Antoine wrap and cold pack were used to cover the dressings. The patients anesthesia was reversed without difficulty. He was taken to the PACU in stable condition. Intended weight-bearing will be as tolerated.
[2019-03-31] MEDS: Docusate CAP* 100 MG PO SCH (20:48)
[2019-03-31] MEDS: Magnesium Hydroxide LIQ* 30 ML UDC PO SCH (20:48)
[2019-04-01] MEDS: ceFAZolin 1 GM ADVAN(*) 1 GM in NS 0.9% 50 ML* 50 ML IVPB SCH ×2 (00:37→07:55)
[2019-04-01] MEDS: Lactated Ringers 1000 ML Bag* 1,000 ML IV SCH ×2 (00:37→11:19)
[2019-04-01] MEDS: oxyCODONE/Acetamin 5/325 MG* TAB PO PRN ×5 (03:23→22:55)
[2019-04-01] MEDS: Cyclobenzaprine TAB* 10 MG PO PRN ×3 (03:23→19:10)
[2019-04-01 07:07] LABS: Hematocrit 32 % (42-52); Hemoglobin 10.9 g/dL (14.0-18.0); Mean Platelet Volume 7.4 fL (7.4-10.4); Platelet Count 176 10^3/uL (150-450)
[2019-04-01 07:23] LABS: Calcium 8.5 mg/dL (8.6-10.3); EGFR African American 126.9 (>60); EGFR Non-African American 104.8 (>60); Potassium 3.9 mmol/L (3.5-5.0)
[2019-04-01] MEDS: Docusate CAP* 100 MG PO SCH ×2 (07:53→20:33)
[2019-04-01] MEDS: Vitamin THERAPEUTIC TAB PO SCH (07:53)
[2019-04-01] MEDS: Magnesium Hydroxide LIQ* 30 ML UDC PO SCH ×2 (07:53→20:33)
[2019-04-01] MEDS: Apixaban* 2.5 MG TAB PO SCH ×2 (07:53→20:33)
[2019-04-01] MEDS ORDERED: Influenza VAC *QUAD* 2019-20* 0.5 ML SYRINGE IM ONE (09:00)
[2019-04-01] MEDS: oxyCODONE TAB* 5 MG TAB PO PRN ×3 (09:04→19:11)
--- NOTE | 2019-04-01 15:28 | PN ---
Progress Note - Progress Note Date of Service: 04/01/19 SOAP: Subjective: [Pt was seen in chair. States that he is doing well. Both knees hurt deep in the knee but he states that it is much improved. He denies any chest pain, SOB, nausea, vomiting. ] Objective: [General: Pt is alert and orineted x3. NAD. MSK, RLE: dressing is c/d/i. Calf soft and non tender. +df/pf. NVI, 2+ DP pulse. ] MSK, LLE: dressing is c/d/i. Calf soft and non tender. +df/pf. NVI, 2+ DP pulse. Vital Signs Temp 98 F 04/01/19 11:18 Pulse 77 04/01/19 11:18 Resp 18 04/01/19 14:29 BP 131/71 04/01/19 11:18 Pulse Ox 97 04/01/19 11:18 Intake & Output 03/31/19 04/01/19 04/01/19 18:59 06:59 18:59 Intake Total 3200 1775 2053 Output Total 1025 3600 375 Balance 2175 -1825 1678 Weight 191 lb 6.4 oz Intake: IV Fluids 2200 1025 1223 ABX - CEFAZOLIN 55 LR 2200 970 1223 IVPB 110 ABX - CEFAZOLIN 110 Oral 1000 750 720 Output: Urine 375 Garcia 750 3600 Estimated Blood Loss 275 Other: # Bowel Movements 1 Estimated Stool Amount Medium Estimated Blood Loss per OR paperwork Comment Assessment: [POD 1 bilateral knee arthroplasty ] Plan: [PT/OT Jovita x 30 days Continue with pain medication PMRU accepted, awaiting insurance approval. ]
[2019-04-02 06:21] LABS: Hematocrit 29 % (42-52); Hemoglobin 10.2 g/dL (14.0-18.0); Mean Platelet Volume 7.5 fL (7.4-10.4); Platelet Count 153 10^3/uL (150-450)
[2019-04-02] MEDS: oxyCODONE/Acetamin 5/325 MG* TAB PO PRN ×4 (07:46→20:28)
[2019-04-02] MEDS: Cyclobenzaprine TAB* 10 MG PO PRN ×2 (07:47→16:17)
[2019-04-02] MEDS: Docusate CAP* 100 MG PO SCH ×2 (07:48→20:28)
[2019-04-02] MEDS: Losartan TAB* 25 MG PO SCH (07:48)
[2019-04-02] MEDS: Atorvastatin* 10 MG TAB PO SCH (07:48)
[2019-04-02] MEDS: Apixaban* 2.5 MG TAB PO SCH ×2 (07:48→20:28)
[2019-04-02] MEDS: Vitamin THERAPEUTIC TAB PO SCH (07:48)
[2019-04-02] MEDS: amLODIPine TAB* 5 MG PO SCH (07:48)
[2019-04-02] MEDS: Magnesium Hydroxide LIQ* 30 ML UDC PO SCH ×2 (07:50→20:28)
[2019-04-02] MEDS ORDERED: Benzocaine/Menthol LOZ* 1 LOZENGE PO PRN (09:51)
--- NOTE | 2019-04-02 11:24 | PN ---
Progress Note - Progress Note Date of Service: 04/02/19 SOAP: Subjective: [Pt was seen in chair. States that he is doing well. Both knees hurt deep in the knee but he states that it is much improved. He denies any chest pain, SOB, nausea, vomiting. He did have 2 bowel movements yesterday. He does also complain of some post nasal drip. ] Objective: [General: Pt is alert and orineted x3. NAD. MSK, RLE: dressing is c/d/i. dressing changed, incision is c/d/i without erythema or drainage. Calf soft and non tender. +df/pf. NVI, 2+ DP pulse. ] MSK, LLE: dressing is c/d/i. dressing changed, incision is c/d/i without erythema or drainage.f Calf soft and non tender. +df/pf. NVI, 2+ DP pulse. Vital Signs Temp 99.4 F 04/02/19 07:52 Pulse 82 04/02/19 07:52 Resp 18 04/02/19 09:48 BP 149/81 04/02/19 07:52 Pulse Ox 97 04/02/19 07:52 Intake & Output 04/01/19 04/02/19 04/02/19 18:59 06:59 18:59 Intake Total 2053 700 300 Output Total 375 1300 175 Balance 1678 -600 125 Intake: IV Fluids 1223 LR 1223 IVPB 110 ABX - CEFAZOLIN 110 Oral 720 700 300 Output: Urine 375 1300 175 Other: Estimated Void Medium Date of Last Bowel 04/01/19 Movement # Bowel Movements 1 1 Estimated Stool Amount Medium Medium # Voids 1 Assessment: [POD 2 bilateral knee arthroplasty ] Plan: [PT/OT Eliquis x 30 days Continue with pain medication would like to go home tomorrow
[2019-04-02] MEDS ORDERED: Bisacodyl SUPP* 10 MG SUPP PR PRN (12:21)
[2019-04-03] MEDS: oxyCODONE/Acetamin 5/325 MG* TAB PO PRN ×2 (03:32→08:10)
[2019-04-03 05:28] LABS: Hematocrit 29 % (42-52); Mean Platelet Volume 7.2 fL (7.4-10.4); Platelet Count 162 10^3/uL (150-450)
[2019-04-03 07:52] VITALS: BP 149/90
[2019-04-03] MEDS: Apixaban* 2.5 MG TAB PO SCH (08:09)
[2019-04-03] MEDS: Losartan TAB* 25 MG PO SCH (08:09)
[2019-04-03] MEDS: amLODIPine TAB* 5 MG PO SCH (08:09)
[2019-04-03] MEDS: Atorvastatin* 10 MG TAB PO SCH (08:10)
[2019-04-03] MEDS: Docusate CAP* 100 MG PO SCH (08:10)
[2019-04-03] MEDS: Vitamin THERAPEUTIC TAB PO SCH (08:10)
[2019-04-03] MEDS: Magnesium Hydroxide LIQ* 30 ML UDC PO SCH (08:11)
--- NOTE | 2019-04-03 09:38 | DS ---
Orthopedic Discharge Summary - Discharge Summary Date of Admission:03/31/19 Date of Discharge: 04/03/2019 Date of Surgery: 03/31/2019 Attending Orthopedic Provider: Dr. Aguilar Pre-operative Diagnosis: Bilateral knee osteoarthritis Operative Procedure: Bilateral knee total arthroplasty Disposition of Patient: Home Condition of Patient: Good History: BJ ALEXANDRE is a 63 year old M with years of increasingly severe bilateral knee pain. Patient has failed conservative management and has elected to undergo a bilateral total knee replacement Hospital Course: BJ was admitted to [facility] on 03/31/19. Patient underwent a bilateral total knee arthroplasty without complication followed by a brief recovery in PACU and transfer to the Short Stay Surgical Unit in stable condition. Our hospitalist service, physical therapy and occupational therapy also participated in this patients care. Post-op day 1: patient was alert and in no acute distress. Dressing was clean, dry and intact. Operative extremity dorsiflexion and plantarflexion intact, sensation intact to light touch distally, DP2+. Post-op day two: dressing was changed, incision was clean, dry and intact. Pt was able to defecate. POD 3 dressing was changed, incision was clean, dry and intact. Patient was deemed to be medically and orthopedically stable for discharge. Physical therapy goals were met. Home Medications Medication Instructions Recorded Confirmed Type Ibuprofen 400 mg PO DAILY PRN 02/23/15 03/11/19 History Losartan Potassium 100 mg PO QAM 11/02/16 03/11/19 History Tadalafil [Cialis] 5 mg PO QAM 11/02/16 03/11/19 History Amlodipine Besylate [Norvasc] 10 mg PO QAM 03/11/19 03/11/19 History Ergocalciferol CAP* [Drisdol CAP*] 50,000 units PO MONTHLY 03/11/19 03/11/19 History Escitalopram Oxalate [Lexapro] 10 mg PO QAM 03/11/19 03/11/19 History Famotidine [Heartburn Prevention] 20 mg PO BEDTIME 03/11/19 03/11/19 History Multivit-Min/FA/Lycopen/Lutein 1 each PO QAM 03/11/19 03/11/19 History [Centrum Silver Men Tablet] Rosuvastatin Calcium 5 mg PO QAM 03/11/19 03/11/19 History Discharge Instructions following Orthopedic Surgery: Activity: * Weight Bearing as tolerated * Continue physical therapy and occupational therapy exercises as shown Wound care: * OK to shower on post-op day 3, no bathing, swimming, or submerging wound. * Use gentle soap, pat dry. Cover with gauze, WAQAS wrap or tape. * Visiting home nurse to do wound checks. Call Orthopedic office for: * Increased drainage * Redness * Increased pain * Fever Go to ER with shortness of breath or chest pain. Diet: * Regular diet * Increase fluids and fiber to prevent constipation. * Continue to use stool softeners, call office if no bowel motion within 48 hours. Medications See Home Medication List in your packet for medications that you should take after discharge. DVT Prophylaxis: Eliquis Dosin.5 mg, 1 tab every 12 hours x 30 days Pain Control: Percocet Dosin/325 mg 1-2 tabs by mouth every 4-6 hours as needed for pain. Maximum of 10 tabs per day. Please note that Percocet contains Tylenol (acetaminophen). Maximum daily dose of Tylenol is 4000 mg from all sources. Antibiotics are required prior to any dental work. FOLLOW UP: Follow up with [Jeff] Within 10-14 days, call for appointment Please call our office with any questions or concerns ([phone])
--- NOTE | 2019-04-03 09:38 | PN ---
Progress Note - Progress Note Date of Service: 04/03/19 SOAP: Subjective: [Pt was seen in chair. States that he is doing well. Both knees pain is improved. He denies any chest pain, SOB, nausea, vomiting. He states that the pain along his thighs has improved. The pt would like to go home today. ] Objective: [General: Pt is alert and orineted x3. NAD. MSK, RLE: dressing is c/d/i. dressing changed, incision is c/d/i without erythema or drainage. Calf soft and non tender. +df/pf. NVI, 2+ DP pulse. ] MSK, LLE: dressing is c/d/i. dressing changed, incision is c/d/i without erythema or drainage.f Calf soft and non tender. +df/pf. NVI, 2+ DP pulse. Vital Signs Temp 98.9 F 04/03/19 07:40 Pulse 82 04/03/19 07:40 Resp 16 04/03/19 08:17 BP 149/90 04/03/19 07:40 Pulse Ox 99 04/03/19 08:16 Intake & Output 04/02/19 04/03/19 04/03/19 18:59 06:59 18:59 Intake Total 540 1400 Output Total 725 900 Balance -185 500 Intake: Oral 540 1400 Output: Urine 725 900 Other: Estimated Void Medium # Bowel Movements 0 # Voids 1 Assessment: [POD 3 bilateral knee arthroplasty ] Plan: [PT/OT Eliquis x 30 days Continue with pain medication DC home today
== END 2019-04-03 11:50 | disposition home health service (06) | DRG 462 ==
LOC: AA 05:37 → SSU 14:15
PROVIDERS: ADMIT Orthopaedic Surgery Adult Reconstructive Orthopaedic Surgery; ATTEND Orthopaedic Surgery Adult Reconstructive Orthopaedic Surgery
PROC: 0SRC069 Replacement of Right Knee Joint with Oxidized Zirconium on Polyethylene Synthetic Substitute, Cemented, Open Approach (ICD-10-PCS; 2019-03-31)
PROC: 0SRD069 Replacement of Left Knee Joint with Oxidized Zirconium on Polyethylene Synthetic Substitute, Cemented, Open Approach (ICD-10-PCS; principal; 2019-03-31 07:45)
DX: M17.0 Bilateral primary osteoarthritis of knee (principal); I10 Essential (primary) hypertension; E78.00 Pure hypercholesterolemia, unspecified; N40.0 Benign prostatic hyperplasia without lower urinary tract symptoms; K21.9 Gastro-esophageal reflux disease without esophagitis; M25.462 Effusion, left knee; M25.461 Effusion, right knee; E78.5 Hyperlipidemia, unspecified; R12 Heartburn; K57.90 Diverticulosis of intestine, part unspecified, without perforation or abscess without bleeding; E78.2 Mixed hyperlipidemia; M85.68 Other cyst of bone, other site; M25.762 Osteophyte, left knee; M25.761 Osteophyte, right knee; Z79.899 Other long term (current) drug therapy; Z86.14 Personal history of Methicillin resistant Staphylococcus aureus infection; Z23 Encounter for immunization
CPT/HCPCS: 36415; 80048; 85014; 85018; 85049; 85610; 86850; 86900; 86901; 88305; 88311; 90686; A9270-GY; C1776; J0690; J0780; J1170; J2250; J2704; J2795; J3010; J3490; J8540